=== PATIENT | male | born 1960 | race Caucasian/White ===

== ENCOUNTER 2016-06-13 15:00 | Inpatient (IN) | payer OTHER ==
[2016-06-13] VITALS (11 sets, daily range): BP systolic 89–109; BP diastolic 57–71; PULSE 75–84; TEMP 36.9–37.3; O2SAT 91–95; Ht 180.3 cm; Wt 85.8 kg
[~2016-06-13] VITALS: Ht 180.3 cm; Wt 85.8 kg
[~2016-06-13 15:00] MED LIST: AMT50 PO; ATEN-175 PO; FELO5TAB PO; GABA-113 PO; GLC/500 PO; HYDC25 PO; PRED20TA PO; PRLSR20 PO; RMR15 PO; SIMV20TA2 PO; TAPE1TAB10 PO; TAPE50TA5 PO; [UNRECOGNIZED DRUG - CODE] PO
[2016-06-13] MEDS ORDERED: SODIUM CHLORIDE 0.9% 1000ML 2,000 ML IV STA (15:26)
--- NOTE | 2016-06-13 15:34 | EMERGENCY ROOM VISIT NOTE ---
History Report prepared by Deanna: Harjeet Alvarez Under the Supervision of: Dr. Angel Walter M.D. First contact with patient: 15:21 Chief Complaint: REFERRED BY DOCTOR Stated Complaint: PHANTOM PAIN,REDNESS,CONFUSION,LOW OXYGEN History of Present Illness The patient is a 55 year old male who presents to the Emergency Room with complaints of constant hypoxia starting prior to arrival. The patient states that he was at his doctor's office this morning and his blood pressure and oxygen saturation was very low. The patient's states that he has been having a fever, coughing, and he has been confused for the past couple of days. Additionally the patient has been having phantom pain for four days. The patient 's states that he has not had any labs or x-rays yet. The patient denies any heart history, however he states that he has a Family history of heart issues. The patient states that he is currently a daily smoker. Source of History: patient, spouse/significant other Onset: prior to arrival Position: other (global) Quality: other (hypoxia) Timing: constant Associated Symptoms: + cough, + fevers Note: Associated symptoms: Phantom pain and confusion Review of Systems See HPI for pertinent positives & negatives. A total of 10 systems reviewed and were otherwise negative. Past Medical & Surgical Medical Problems: (1) Chronic low back pain (2) Chronic steroid use (3) Depression (4) Diabetes mellitus, type 2 (5) Dyslipidemia (6) GERD (gastroesophageal reflux disease) (7) Hypertension (8) Phantom limb syndrome with pain (9) Polymyalgia rheumatica (10) Tobacco use Surgical Problems: (1) Amputation of right lower extremity (2) Status post total knee replacement Social History Smoking Status: Never Smoker Marital Status: Housing Status: lives with family Occupation Status: disabled Current/Historical Medications Scheduled Amitriptyline Hcl (Elavil), 100 MG PO HS Atenolol (Tenormin), 100 MG PO BID Atorvastatin (Lipitor), 40 MG PO DAILY Citalopram (Citalopram Hydrobromide), 20 MG PO DAILY Felodipine (Plendil), 5 MG PO DAILY Gabapentin (Neurontin), 900 MG PO BID Glyburide (Diabeta), 2.5 MG PO DAILY Hydrochlorothiazide (Hctz), 25 MG PO DAILY Hydroxychloroquine Sulfate (Plaquenil), 400 MG PO HS Metformin Hcl (Glucophage), 500 MG PO BID Mirtazapine Soltab (Remeron Soltab), 15 MG PO HS Omeprazole (Prilosec), 20 MG PO DAILY Prednisone (Prednisone), 10 MG PO DAILY Tapentadol Hcl (Nucynta), 50 MG PO QID PRN Tapentadol Hcl (Nucynta Er), 1 TAB PO BID Valsartan (Diovan), 320 MG PO DAILY Allergies Coded Allergies: Ciprofloxacin (Verified Allergy, Unknown, ITCH, 06/13/16) Clindamycin (Verified Allergy, Unknown, N/V, 06/13/16) Sulfa Drugs (Verified Allergy, Unknown, ITCH, 06/13/16) Venlafaxine (Verified Allergy, Unknown, N/V, 06/13/16) Physical Exam Vital Signs Date Time Temp Pulse Resp B/P Pulse Ox O2 Delivery O2 Flow Rate FiO2 06/13/16 17:00 103/57 06/13/16 16:55 73 20 95/62 100 Nasal Cannula 2.0 06/13/16 15:13 37.5 82 20 88/55 89 Room Air Physical Exam GENERAL: Patient is chronically unwell appearing. Smells heavily of tobacco smoke. HEENT: No acute trauma, normocephalic atraumatic, mucous membranes moist, no nasal congestion, no scleral icterus. NECK: No stridor, no adenopathy, no meningismus, trachea is midline. LUNGS: Junky cough with crackles at the bases of both lungs HEART: Regular rate and rhythm. No murmurs, rubs, gallops appreciated. ABDOMEN: Soft, nontender, bowel sounds positive, no masses appreciated, no peritonitis. BACK: No midline tenderness, no CVA tenderness EXTREMITIES: Amputated right leg with prosthesis in place. Normal motion all extremities, no cyanosis, no edema. NEUROLOGIC: Alert and oriented, no acute motor or sensory deficits, no focal weakness, cranial nerves grossly intact. SKIN: No rash, no jaundice, no diaphoresis. Medical Decision & Procedures ER Provider Diagnostic Interpretation: X ray results are stated below per my interpretation and the radiologist's interpretation. CHEST ONE VIEW PORTABLE CLINICAL HISTORY: Fever COMPARISON STUDY: No previous studies for comparison. FINDINGS: There is mild elevation right hemidiaphragm. The heart is normal in size. It is no failure. There are no focal pulmonary consolidation. There are minor left basilar atelectatic changes.[ IMPRESSION: No active disease in the chest. Electronically signed by: Roe Rivero M.D. 06/13/2016 3:54 PM Dictated Date/Time: 06/13/2016 3:53 PM Laboratory Results 06/13/16 15:35 Red Blood Count 4.07, Mean Corpuscular Volume 86.5, Mean Corpuscular Hemoglobin 30.7, Mean Corpuscular Hemoglobin Concent 35.5, Mean Platelet Volume 8.0, Neutrophils (%) (Auto) 86.0, Lymphocytes (%) (Auto) 6.7, Monocytes (%) (Auto) 6.9, Eosinophils (%) (Auto) 0.0, Basophils (%) (Auto) 0.1, Neutrophils # (Auto) 10.26, Lymphocytes # (Auto) 0.80, Monocytes # (Auto) 0.82, Eosinophils # (Auto) 0.00, Basophils # (Auto) 0.01 Test 06/13/16 15:35 06/13/16 15:36 White Blood Count 11.92 K/uL (4.8-10.8) Red Blood Count 4.07 M/uL (4.7-6.1) Hemoglobin 12.5 g/dL (14.0-18.0) Hematocrit 35.2 % (42-52) Mean Corpuscular Volume 86.5 fL (80-100) Mean Corpuscular Hemoglobin 30.7 pg (25-34) Mean Corpuscular Hemoglobin Concent 35.5 g/dl (32-36) Platelet Count 186 K/uL (130-400) Mean Platelet Volume 8.0 fL (7.4-10.4) Neutrophils (%) (Auto) 86.0 % Lymphocytes (%) (Auto) 6.7 % Monocytes (%) (Auto) 6.9 % Eosinophils (%) (Auto) 0.0 % Basophils (%) (Auto) 0.1 % Neutrophils # (Auto) 10.26 K/uL (1.4-6.5) Lymphocytes # (Auto) 0.80 K/uL (1.2-3.4) Monocytes # (Auto) 0.82 K/uL (0.11-0.59) Eosinophils # (Auto) 0.00 K/uL (0-0.5) Basophils # (Auto) 0.01 K/uL (0-0.2) RDW Standard Deviation 39.8 fL (36.4-46.3) RDW Coefficient of Variation 12.4 % (11.5-14.5) Immature Granulocyte % (Auto) 0.3 % Immature Granulocyte # (Auto) 0.03 K/uL (0.00-0.02) Prothrombin Time 12.0 SECONDS (9.0-12.0) Prothromb Time International Ratio 1.1 (0.9-1.1) Est Creatinine Clear Calc Drug Dose 51.5 ml/min Total Bilirubin 0.3 mg/dl (0.2-1) Direct Bilirubin < 0.1 mg/dl (0-0.2) Aspartate Amino Transf (AST/SGOT) 17 U/L (15-37) Alanine Aminotransferase (ALT/SGPT) 26 U/L (12-78) Alkaline Phosphatase 46 U/L (45-117) Total Creatine Kinase 169 U/L (39-308) Creatine Kinase MB 1.5 ng/ml (0.5-3.6) Creatine Kinase MB Ratio 0.9 (0-3.0) Troponin I < 0.015 ng/ml (0-0.045) Total Protein 6.5 gm/dl (6.4-8.2) Albumin 3.2 gm/dl (3.4-5.0) Bedside Lactic Acid Venous 2.01 mmol/L (0.90-1.70) Laboratory results as reviewed by me. Medications Administered Medications (Trade) Dose Ordered Sig/Yaz Route Start Time Stop Time Status Last Admin Dose Admin Sodium Chloride (Nss 1000ml) 2,000 ml @ 999 mls/hr Q2H1M STAT IV 06/13/16 15:26 06/13/16 17:26 DC 06/13/16 15:35 999 MLS/HR Piperacillin Sod/ Tazobactam Sod 4.5 gm 4.5 gm NOW STAT IV 06/13/16 16:01 06/13/16 16:03 DC 06/13/16 17:10 4.5 GM Vancomycin HCl/ Sodium Chloride (Vancomycin Inj/ Nss 500ml) 546 ml @ 200 mls/hr NOW ONCE IV 06/13/16 16:45 06/13/16 19:28 DC 06/13/16 17:32 200 MLS/HR ECG Indication: other (hypoxic) Rate (beats per minute): 72 Rhythm: normal sinus Findings: no acute ischemic change, no ectopy ED Course 1521: The patient was evaluated in room C8. A complete history and physical exam was performed. 1526: Sodium Chloride 2000 ml @ 999 mls/hr IV 1601: Zosyn 4.5gm IV 1603 I reevaluated the patient, and he was resting. 1612: I discussed the patient's case with Dr. Tanner. He is going to evaluate the patient for further treatment. 1645: Vancomycin HCl 2300 mg/ Sodium Chloride 546 ml @ 200mls/hr 1701: I reevaluated the patient, and he was feeling better. His blood pressure was 95/60 and he is mentating well. Dr. Tanner is at bedside and will continue managing the patient's sepsis Medical Decision Differential: Infectious, Reactive Airway Disease, Pneumonia, Pneumothorax, COPD , CHF, ACS, Pulmonary Embolism, MSK, GI, Dissection, amongst other etiologies entertained. 55 yr old male sent over from clinic for hypoxia and fever. Notes no chest pain and maybe mild cough last few days. Trop/EKG look OK. He has evidence of sepsis with mildly elevated lactic acid as well. Given 3 L NSS bolus with improvement in BP. Empiric ABX started though no clear source, but would assume lung given hypoxia. He does not exam like PE/dissection not is history consistent with these, and with acute rental insufficiency I do not feel that dye load would be appropriate at this time. Hospitalist involved early in patient care given concern for sepsis and will bring in for further treatment/ monitoring. Consults Time Called: 1609 Consulting Physician: Dr. Tanner Returned Call: 1612 I discussed the patient's case with Dr. Tanner. He is going to evaluate the patient for further treatment. Impression Primary Impression: Sepsis Additional Impressions: Hypoxia Hypotension Critical Care I have personally spent greater than 30 minutes of critical care time in the direct management of this patient. This was a life/limb threatening event. This includes time spent evaluating patient, direct bedside care, chart review, placing orders, interpretation of diagnostic studies, discussion with consultants, patient, and family members, as well as other required patient management activities. This 30 minutes is in excess of all separately billable procedures. Scribe Attestation The scribe's documentation has been prepared under my direction and personally reviewed by me in its entirety. I confirm that the note above accurately reflects all work, treatment, procedures, and medical decision making performed by me. Departure Information Dispostion Being Evaluated By Hospitalist Referrals Spencer Cherry M.D.([facility]) (PCP) Problem Qualifiers Primary Impression: Sepsis Sepsis type: sepsis due to unspecified organism Qualified Codes: A41.9 - Sepsis, unspecified organism Additional Impressions: Hypotension Hypotension type: unspecified hypotension type Qualified Codes: I95.9 - Hypotension, unspecified
[2016-06-13 15:49] LABS: HEMATOCRIT 35.2 % (42-52); MEAN CELL VOLUME 86.5 fL (80-100); MEAN CORPUSCULAR HEMOGLOBIN 30.7 pg (25-34); MEAN CORPUSCULAR HGB CONC 35.5 g/dl (32-36); PLATELET COUNT 186 K/uL (130-400); RED BLOOD COUNT 4.07 M/uL (4.7-6.1); WHITE BLOOD COUNT 11.92 K/uL (4.8-10.8)
--- NOTE | 2016-06-13 15:55 | DIAGNOSTIC IMAGING REPORT ---
CHEST ONE VIEW PORTABLE CLINICAL HISTORY: Fever COMPARISON STUDY: No previous studies for comparison. FINDINGS: There is mild elevation right hemidiaphragm. The heart is normal in size. It is no failure. There are no focal pulmonary consolidation. There are minor left basilar atelectatic changes.[ IMPRESSION: No active disease in the chest. Electronically signed by: Roe Rivero M.D. 06/13/2016 3:54 PM Dictated Date/Time: 06/13/2016 3:53 PM
[2016-06-13 15:57] LABS: INR 1.1 (0.9-1.1)
[2016-06-13] MEDS ORDERED: PIPERACILLIN/TAZOBACTAM 4.5 GM/100ML D5W IV STA (16:01)
[2016-06-13 16:12] LABS: ALT/SGPT 26 U/L (12-78); AST/SGOT 17 U/L (15-37); BASO % 0.1 %; BASO ABS # 0.01 K/uL (0-0.2); BLOOD UREA NITROGEN 36 mg/dl (7-18); BUN/CREATININE RATIO 19.2 (10-20); CALCIUM 7.8 mg/dl (8.5-10.1); CARBON DIOXIDE 25 mmol/L (21-32); CHLORIDE 93 mmol/L (98-107); COMPLETE YES; GLUCOSE 77 mg/dl (70-99); IG% 0.3 %; LYMPH % 6.7 %; MAGNESIUM 1.8 mg/dl (1.8-2.4); MONO % 6.9 %; POTASSIUM 3.7 mmol/L (3.5-5.1); SODIUM 129 mmol/L (136-145)
[2016-06-13 16:17] LABS: ALKALINE PHOSPHATASE 46 U/L (45-117); CKMB/CK RATIO 0.9 (0-3.0)
[2016-06-13] MEDS ORDERED: MIRT15TA2 PO (16:18)
[2016-06-13] MEDS ORDERED: HYDR25TA4 PO (16:18)
[2016-06-13] MEDS ORDERED: VALS320T PO (16:18)
[2016-06-13] MEDS ORDERED: ATOR-24 PO (16:18)
[2016-06-13] MEDS ORDERED: VANCOMYCIN INJ 2,300 MG in SODIUM CHLORIDE 0.9% 500ML 500 ML IV ONE (16:45)
[2016-06-13] MEDS ORDERED: ONDANSETRON INJ 2 MG/ML 2 ML VIAL IV PRN (17:15)
[2016-06-13] MEDS ORDERED: ACETAMINOPHEN 325 MG TAB PO PRN (17:15)
[2016-06-13] MEDS ORDERED: SODIUM CHLORIDE 0.9% 1000ML 1,000 ML IV SCH (17:15)
[2016-06-13] MEDS ORDERED: CLX20 PO (17:36)
[2016-06-13] MEDS ORDERED: PRED10TA PO (17:37)
[2016-06-13] MEDS ORDERED: GLYB2.5T7 PO (17:37)
[2016-06-13] MEDS ORDERED: HYDR200T5 PO (17:37)
[2016-06-13 17:39] LABS: MANUAL MICROSCOPIC REQUIRED? NO; REVIEW REQ? YES; URINE APPEARANCE CLEAR (CLEAR); URINE BILIRUBIN NEG (NEG); URINE COLOR DK YELLOW; URINE NITRITE NEG (NEG); URINE SPECIFIC GRAVITY 1.013 (1.000-1.030); UROBILINOGEN NEG (NEG)
[2016-06-13] MEDS ORDERED: VANCOMYCIN INJ 0 MG in SODIUM CHLORIDE 0.9% 500ML 500 ML IV SCH (17:45)
[2016-06-13] MEDS ORDERED: TAPENTADOL HCL 50 MG TAB PO PRN (17:45)
[2016-06-13 17:52] LABS: URINE PATH CASTS 0-3 GRANULAR CASTS /lpf (0)
--- NOTE | 2016-06-13 17:54 | History and Physical ---
History & Physical Date & Time of Service: Jun 13, 2016 at 17:54 . Chief Complaint: cough, weakness, confusion . Primary Care Physician: Spencer Cherry M.D.([facility]) . History of Present Illness Source: patient, family, clinic records, hospital records 55-year-old male followed by Dr. Cherry. History of hypertension, diabetes mellitus type 2, PMR on steroids, and other problems noted below. 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 Since then, he has experienced phantom limb discomfort. 3 nights prior to admission he developed a cough that was nonproductive. No apparent fever. He felt tired and noticed increasing discomfort from his phantom limb symptoms. 2 days prior to admission he had persistent phantom limb discomfort, persistent cough, weakness, and confusion. Yesterday he was very tired and slept much of the day. Seen in clinic today because of his persistent cough, confusion, and phantom limb discomfort. Found to be acutely ill and referred to the ED for further management. In the ED, he is noted to be hypotensive, hypoxic, confused. He had a low-grade temperature. Sepsis protocol was initiated. As noted, patient has had a cough for the past few days that remains nonproductive. No sinus symptoms or pharyngitis. No toothaches. No nausea, vomiting, diarrhea, abdominal pain. No dysuria, hematuria, flank pain. No problems with his right lower extremity prosthesis (e.g., no drainage at amputation site, etc). . . Past Medical/Surgical History Chronic and Resolved Medical Problems: (1) Chronic low back pain Status: Chronic (2) Chronic steroid use Permanent Comment: PMR Status: Chronic (3) Depression Status: Chronic (4) Diabetes mellitus, type 2 Status: Chronic (5) Dyslipidemia Status: Chronic (6) GERD (gastroesophageal reflux disease) Status: Chronic (7) Hypertension Status: Chronic (8) Phantom limb syndrome with pain Status: Chronic (9) Polymyalgia rheumatica Status: Chronic (10) Tobacco use Status: Chronic Surgical Problems: (1) Amputation of right lower extremity Permanent Comment: logging accident; amputation at hip / pelvis Status: Chronic (2) Status post total knee replacement Status: Chronic . Family History FATHER Heart disease Prostate cancer SISTER Diabetes mellitus Social History Smoking Status: Current Every Day Smoker Alcohol Use: none recently Marital Status: Occupational Status: disabled Immunizations History of Influenza Vaccine: Yes History of Pneumococcal: Yes Multi-Drug Resistant Organisms History of MDRO: No Allergies Coded Allergies: Ciprofloxacin (Verified Allergy, Unknown, ITCH, 06/13/16) Clindamycin (Verified Allergy, Unknown, N/V, 06/13/16) Sulfa Drugs (Verified Allergy, Unknown, ITCH, 06/13/16) Venlafaxine (Verified Allergy, Unknown, N/V, 06/13/16) Home Medications Scheduled Amitriptyline Hcl (Elavil), 100 MG PO HS Atenolol (Tenormin), 100 MG PO BID Atorvastatin (Lipitor), 40 MG PO DAILY Citalopram (Citalopram Hydrobromide), 20 MG PO DAILY Felodipine (Plendil), 5 MG PO DAILY Gabapentin (Neurontin), 900 MG PO BID Glyburide (Diabeta), 2.5 MG PO DAILY Hydrochlorothiazide (Hctz), 25 MG PO DAILY Hydroxychloroquine Sulfate (Plaquenil), 400 MG PO HS Metformin Hcl (Glucophage), 500 MG PO BID Mirtazapine Soltab (Remeron Soltab), 15 MG PO HS Omeprazole (Prilosec), 20 MG PO DAILY Prednisone (Prednisone), 10 MG PO DAILY Tapentadol Hcl (Nucynta), 50 MG PO QID PRN Tapentadol Hcl (Nucynta Er), 1 TAB PO BID Valsartan (Diovan), 320 MG PO DAILY Review of Systems Constitutional: + fever, No chills, No weight loss Eyes: No diplopia, No worsening of vision ENT: No nasal symptoms, No sore throat Respiratory: + problem reported (as noted above in HPI) Cardiovascular: No chest pain, No edema Abdomen: No GI bleeding, No diarrhea, No nausea, No pain, No vomiting Musculoskeletal: + muscle pain (PMR symptoms controlled on prednisone), + problem reported (phantom pain RLE; chronic lumbar pain, unchanged) Genitourinary - Male: No dysuria, No hematuria Neurologic: + problem reported (no headaches) Psychiatric: + depression symptoms Endocrine: + fatigue, No excessive thirst, No excessive urination Hematologic / Lymphatic: No abnormal bleeding/bruising, No swollen lymph nodes Integumentary: No new/changing skin lesions, No rash Physical Exam Vital Signs Date Time Temp Pulse Resp B/P Pulse Ox O2 Delivery O2 Flow Rate FiO2 06/13/16 17:43 76 06/13/16 17:36 96 Nasal Cannula 2.0 06/13/16 17:30 79 17 125/65 96 06/13/16 17:00 103/57 06/13/16 16:55 73 20 95/62 100 Nasal Cannula 2.0 06/13/16 15:13 37.5 82 20 88/55 89 Room Air General Appearance: WD/WN, + moderate distress Head: normocephalic, atraumatic Eyes: normal inspection, PERRL, EOMI, sclerae normal, + pertinent finding ( conjunctivae pink) ENT: hearing grossly normal, pharynx normal, + pertinent finding (dentition poor) Neck: supple, no adenopathy, thyroid normal, no JVD, trachea midline Respiratory/Chest: + rhonchi (scattered), + wheezing (diffuse, moderate) Cardiovascular: regular rate, rhythm, no edema, no gallop, no JVD, no murmur, + pertinent finding (diminished pedal pulses L foot; capillary refill 1-2 sec) Abdomen/GI: normal bowel sounds, non tender, soft, no organomegaly, no pulsatile mass Extremities/Musculoskelatal: no calf tenderness, no pedal edema, + pertinent finding (amputation RLE at level of hip / pelvis) 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 (PERRL, EOMI, no facial palsy), no motor/sensory deficits (grossly intact), + disoriented (mild confusion) Skin: normal color, warm/dry, no rash, + pertinent finding (1 cm superfical ulcer right pelvis overlying amputation scar, no erythema or drainage) Lymphatic: no adenopathy Diagnostics Laboratory Results Results Past 24 Hours Test 06/13/16 15:35 06/13/16 15:36 06/13/16 17:20 Range/Units White Blood Count 11.92 4.8-10.8 K/uL Red Blood Count 4.07 4.7-6.1 M/uL Hemoglobin 12.5 14.0-18.0 g/dL Hematocrit 35.2 42-52 % Mean Corpuscular Volume 86.5 80-100 fL Mean Corpuscular Hemoglobin 30.7 25-34 pg Mean Corpuscular Hemoglobin Concent 35.5 32-36 g/dl Platelet Count 186 130-400 K/uL Mean Platelet Volume 8.0 7.4-10.4 fL Neutrophils (%) (Auto) 86.0 % Lymphocytes (%) (Auto) 6.7 % Monocytes (%) (Auto) 6.9 % Eosinophils (%) (Auto) 0.0 % Basophils (%) (Auto) 0.1 % Neutrophils # (Auto) 10.26 1.4-6.5 K/uL Lymphocytes # (Auto) 0.80 1.2-3.4 K/uL Monocytes # (Auto) 0.82 0.11-0.59 K/uL Eosinophils # (Auto) 0.00 0-0.5 K/uL Basophils # (Auto) 0.01 0-0.2 K/uL RDW Standard Deviation 39.8 36.4-46.3 fL RDW Coefficient of Variation 12.4 11.5-14.5 % Immature Granulocyte % (Auto) 0.3 % Immature Granulocyte # (Auto) 0.03 0.00-0.02 K/uL Prothrombin Time 12.0 9.0-12.0 SECONDS Prothromb Time International Ratio 1.1 0.9-1.1 Sodium Level 129 136-145 mmol/L Potassium Level 3.7 3.5-5.1 mmol/L Chloride Level 93 98-107 mmol/L Carbon Dioxide Level 25 21-32 mmol/L Anion Gap 11.0 3-11 mmol/L Blood Urea Nitrogen 36 7-18 mg/dl Creatinine 1.90 0.60-1.40 mg/dl Est Creatinine Clear Calc Drug Dose 51.5 ml/min Estimated GFR () 45.3 Estimated GFR (Non- 39.1 BUN/Creatinine Ratio 19.2 10-20 Random Glucose 77 70-99 mg/dl Calcium Level 7.8 8.5-10.1 mg/dl Magnesium Level 1.8 1.8-2.4 mg/dl Total Bilirubin 0.3 0.2-1 mg/dl Direct Bilirubin < 0.1 0-0.2 mg/dl Aspartate Amino Transf (AST/SGOT) 17 15-37 U/L Alanine Aminotransferase (ALT/SGPT) 26 12-78 U/L Alkaline Phosphatase 46 45-117 U/L Total Creatine Kinase 169 39-308 U/L Creatine Kinase MB 1.5 0.5-3.6 ng/ml Creatine Kinase MB Ratio 0.9 0-3.0 Troponin I < 0.015 0-0.045 ng/ml Total Protein 6.5 6.4-8.2 gm/dl Albumin 3.2 3.4-5.0 gm/dl Bedside Lactic Acid Venous 2.01 0.90-1.70 mmol/L Urine Color DK YELLOW Urine Appearance CLEAR CLEAR Urine pH 5.0 4.5-7.5 Urine Specific [place] 1.013 1.000-1.030 Urine Protein NEG NEG Urine Glucose (UA) NEG NEG Urine Ketones NEG NEG Urine Occult Blood NEG NEG Urine Nitrite NEG NEG Urine Bilirubin NEG NEG Urine Urobilinogen NEG NEG Urine Leukocyte Esterase NEG NEG Urine WBC (Auto) 1-5 0-5 /hpf Urine RBC (Auto) 0-4 0-4 /hpf Urine Hyaline Casts (Auto) 10-30 0-5 /lpf Urine Epithelial Cells (Auto) 10-20 0-5 /lpf Urine Bacteria (Auto) NEG NEG Urine Pathogenic Casts 0-3 GRANULAR CASTS 0 /lpf Microbiology Results 06/13/16 Blood Culture, Received Pending 06/13/16 Blood Culture, Received Pending 06/13/16 Urine Culture, Received Pending Impression Assessment and Plan SEVERE SEPSIS Presented to ED with low-grade fever, cough, hypotension, altered mental status , leukocytosis, hyperlactemia. Blood pressure as low as 88/55. Serum lactate 2.01. Meets criteria for severe sepsis. Source uncertain, probable lower respiratory tract although chest x-ray does not show any infiltrates at this time. Blood cultures obtained in ED; urine culture ordered as well. Received fluid resuscitation with normal saline; goal = about 2700 ml per guidelines. Stress dose IV hydrocortisone will be ordered due to chronic steroid therapy. Will start pressor support if patient has persistent hypotension after initial fluid resuscitation. Received broad-spectrum IV antibiotic coverage with piperacillin/tazobactam and vancomycin which will be continued. Check follow-up labs, including lactate, pro-calcitonin, C-reactive protein. Initial empiric antibiotic therapy will be continued for 48 hours per protocol; antibiotic management will need to be reevaluated at that time. ALTERED MENTAL STATUS Probable encephalopathy secondary to sepsis. Follow. HYPOXIA Oxygen saturation 89% on room air. No history of chronic lung disease, although patient is a smoker. Supplemental oxygen as needed. Nebs for bronchospasm. Weaned O2 as able. ACUTE KIDNEY INJURY Serum creatinine 1.9 compared to baseline of 0.9. Acute kidney injury most likely secondary to sepsis. Management of sepsis as outlined above. Avoid potential nephrotoxins when able. Follow. HYPONATREMIA Serum sodium 129. Hyponatremia may be secondary to hydrochlorothiazide, SIADH, other factors. Hold HCTZ. Follow. HYPERTENSION History of hypertension managed with hydrochlorothiazide, atenolol, felodipine, losartan. Hypotensive in ED, apparently due to sepsis. Hold hydrochlorothiazide, felodipine, losartan. Continue atenolol as hemodynamics allow, but initially at a reduced dose with hold parameters. Follow and titrate therapy. DM TYPE 2 Usually well-controlled. Check hemoglobin A1c. Hold metformin and glyburide during acute illness. Lantus/NovoLog per protocol with initial glucose goal range of 140-180. PMR PMR on chronic prednisone therapy. IV steroids while acutely ill, then taper to usual maintenance dose. Also takes hydroxychloroquine- will hold in light of sepsis. CHRONIC PAIN Continue usual regimen as tolerated. VTE PROPHYLAXIS Moderately high risk for VTE. SQ enoxaparin. Ambulate as able. RESUSCITATION STATUS Full resuscitation. DISPOSITION Hemodynamics improving with fluid resuscitation. Admit to Telemetry Unit. Discharge disposition to be determined. Family Medicine follow-up with Dr. Cherry. . VTE Prophylaxis VTE Risk Assessment Done? Y/N: Yes Risk Level: Moderate Given or contraindicated: Enoxaparin (Lovenox)SQ
[2016-06-13] MEDS ORDERED: PANTOprazole INJ 40 MG in SYRINGE 0 ML IV STA (19:38)
[2016-06-13 19:49] LABS: PARTIAL THROMBOPLASTIN RATIO 1.3
--- NOTE | 2016-06-13 19:58 | Progress Note ---
Progress Note Post Crystalloid Evaluation Date: Jun 13, 2016 Time: 19:30 Subjective Better. BP's improved. More alert. Persistent cough. No SOB. Good urine output via Perez cath. . Physical Exam Vital Signs: Vital Signs Date Time Temp Pulse Resp B/P Pulse Ox O2 Delivery O2 Flow Rate FiO2 06/13/16 19:05 37.3 80 18 105/64 Nasal Cannula 2.0 06/13/16 19:05 95 Lungs: + rhonchi, + wheezing Heart: regular rate, rhythm, no edema, no gallop, no JVD, no murmur Peripheral Pulse: Weak (left pedal pulses dimnished) Capillary Refill: Normal (less than 2 seconds) Skin: Flushed (mild flushing back / neck) Assessment & Plan Presence of: Severe Sepsis Severe sepsis, suspected pulmonary source. Hemodynamics improved with fluid resuscitation. Repeat lactate and other labs pending. Continue IV vancomycin and piperacillin / tazo. .
[2016-06-13] MEDS ORDERED: PIPERACILL/TAZOBAC CONSULT ACTIVE PRN (20:00)
[2016-06-13] MEDS ORDERED: VANCOMYCIN CONSULT ACTIVE PRN (20:00)
[2016-06-13 20:23] LABS: BUN/CREATININE RATIO 20.3 (10-20); C-REACTIVE PROTEIN 14.6 mg/dl (0-0.29); CALCIUM 7.2 mg/dl (8.5-10.1); CREATININE 1.5 mg/dl (0.60-1.40); POTASSIUM 3.6 mmol/L (3.5-5.1)
[2016-06-13 20:35] LABS: MAGNESIUM 1.8 mg/dl (1.8-2.4)
[2016-06-13] MEDS: INSULIN ASPART 100 UNITS/ML 3 ML PEN SC SCH (21:05)
[2016-06-13] MEDS: ENOXAPARIN 40 MG/0.4 ML SYR SC SCH (21:05)
[2016-06-13] MEDS: GABAPENTIN 600 MG TAB PO SCH (21:08)
[2016-06-13] MEDS: AMITRIPTYLINE HCL 50 MG TAB PO SCH (21:08)
[2016-06-13] MEDS: MIRTAZAPINE TAB 15 MG TAB PO SCH (21:09)
[2016-06-13] MEDS: INSULIN GLARGINE SOLOSTAR 100 UNITS/ML 3 ML PEN SC SCH (21:14)
[2016-06-13] MEDS: TAPENTADOL ER 50 MG TABCR PO SCH (21:14)
[2016-06-13 21:26] LABS: INFLUENZA B PCR Neg for Influ B (NEG)
[2016-06-13 21:28] LABS: INFLUENZA A PCR POS for Influ A (NEG)
[2016-06-13] MEDS ORDERED: OSELTAMIVIR PHOSPHATE 75 MG CAP PO ONE (21:33)
[2016-06-13] MEDS: PIPERACILL/TAZOBAC IV 3.375 GM in DEXTROSE 5% 100ML 100 ML IV SCH (23:53)
[2016-06-13] MEDS: HYDROCORTISONE IV 50 MG in SYRINGE 0 ML IV SCH (23:53)
[2016-06-14] VITALS (22 sets, daily range): BP systolic 91–130; BP diastolic 60–76; PULSE 67–84; TEMP 36.4–36.7; O2SAT 91–97
[2016-06-14] MEDS: VANCOMYCIN INJ 1,000 MG in SODIUM CHLORIDE 0.9% 250ML 250 ML IV SCH ×2 (05:38→18:31)
[2016-06-14 05:40] LABS: HEMATOCRIT 35.7 % (42-52); MEAN CELL VOLUME 89.3 fL (80-100); MEAN CORPUSCULAR HEMOGLOBIN 31.8 pg (25-34); MEAN CORPUSCULAR HGB CONC 35.6 g/dl (32-36); MEAN PLATELET VOLUME 8.1 fL (7.4-10.4); PLATELET COUNT 175 K/uL (130-400); WHITE BLOOD COUNT 9.75 K/uL (4.8-10.8)
[2016-06-14 06:19] LABS: CALCIUM 7.8 mg/dl (8.5-10.1); CREATININE 0.91 mg/dl (0.60-1.40); MAGNESIUM 1.8 mg/dl (1.8-2.4); POTASSIUM 3.5 mmol/L (3.5-5.1)
[2016-06-14] MEDS: INSULIN ASPART 100 UNITS/ML 3 ML PEN SC SCH ×4 (07:00→20:02)
--- NOTE | 2016-06-14 07:53 | DIAGNOSTIC IMAGING REPORT ---
CHEST ONE VIEW PORTABLE CLINICAL HISTORY: sepsis COMPARISON STUDY: No previous studies for comparison. FINDINGS: There is mild elevation of right hemidiaphragm. The heart is normal in size. No evidence for pulmonary edema. There are no focal pulmonary consolidation. There are minor left basilar atelectatic changes.[ IMPRESSION: No significant change compared to the prior study. Stable elevation of the right hemidiaphragm. Electronically signed by: Rolan Church M.D. 06/14/2016 7:52 AM Dictated Date/Time: 06/14/2016 7:51 AM
[2016-06-14] MEDS: CITALOPRAM 20 MG TAB PO SCH (08:09)
[2016-06-14] MEDS: HYDROCORTISONE IV 50 MG in SYRINGE 0 ML IV SCH ×2 (08:09→17:38)
[2016-06-14] MEDS: OSELTAMIVIR PHOSPHATE 75 MG CAP PO SCH ×2 (08:10→20:00)
[2016-06-14] MEDS: VALSARTAN 80 MG TAB PO SCH (08:10)
[2016-06-14] MEDS: PANTOprazole SOD 40 MG TAB PO SCH (08:10)
[2016-06-14] MEDS: GABAPENTIN 600 MG TAB PO SCH ×2 (08:10→20:00)
[2016-06-14] MEDS: INSULIN GLARGINE SOLOSTAR 100 UNITS/ML 3 ML PEN SC SCH ×2 (08:28→20:03)
[2016-06-14] MEDS: PIPERACILL/TAZOBAC IV 3.375 GM in DEXTROSE 5% 100ML 100 ML IV SCH ×2 (08:28→17:37)
[2016-06-14] MEDS: TAPENTADOL ER 50 MG TABCR PO SCH ×2 (08:36→20:06)
--- NOTE | 2016-06-14 17:28 | Pharmacy Progress Note ---
Pharmacy Antibiotic Consult Date of Service: Jun 14, 2016. Pharmacy Dosing Scope Pharmacy is consulted to initiate vancomycin and Zosyn IV dosing therapy, order appropriate labs and adjust drug dose/frequency. Subjective The patient is a 55 year old male admitted on Jun 13, 2016 at 17:15 with severe sepsis, suspected pulmonary source. Objective Height (Feet): 5 Height (Inches): 11.00 Weight (Kilograms): 85.800 Lab Results (24hrs): Laboratory Tests Test 06/13/16 19:30 06/14/16 05:21 BUN/Creatinine Ratio 20.3 22.0 Blood Urea Nitrogen 30 mg/dl 20 mg/dl Creatinine 1.50 mg/dl 0.91 mg/dl White Blood Count 9.75 K/uL Micro Results: Urine and Blood cx are pending Assessment & Plan Vancomycin for sepsis, pulmonary source. * Loading dose: 2300 mg IV X 1 dose (~25mg/kg) then: * 1000 mg IV every 12 hours. * Goal peak level estimate: between 35 - 40 mcg/mL. * Goal trough level estimate: between 15 - 20 mcg/mL. * Peak and trough or random level has been ordered for: 04/14 prior to 1800 dose. Zosyn 4.5gm IV in ER, the 3.375gm IV q8h extended infusion for CrCl > 20ml/min. Pharmacy will continue to follow and will adjust dose/frequency as necessary. Thank you
--- NOTE | 2016-06-14 18:52 | Progress Note ---
Internal Med Progress Note Date of Service: Jun 14, 2016. Provider Documentation: SUBJECTIVE: no fever or chills OBJECTIVE: Vital Signs-as noted below Exam: General-no sign of distress Eyes-sclera non icteric ENT-nad Neck-no thyromegaly Lungs-CTA .no wheeze or rales Heart-regular S1/S2 Abdomen-soft, non tender Extremities-no lower ext edema Neuro-no focal deficit Lab data as noted below. ASSESSMENT & PLAN: SEVERE SEPSIS due to Influenza A Presented to ED with low-grade fever, cough, hypotension, altered mental status , leukocytosis, hyperlactemia. Blood pressure as low as 88/55. Serum lactate 2.01. Meets criteria for severe sepsis. Received fluid resuscitation with normal saline BP remains stable Lactic acid level normalized with fluid resuscitation INFLUENZA A started on Tamiflu complete 5 days course Droplet precaution ALTERED MENTAL STATUS resolved , mental status at baseline Probable metabolic encephalopathy secondary to sepsis/dehydration /flu Follow. HYPOXIA due to pneumonia Supplemental oxygen as needed. Nebs for bronchospasm. Weaned O2 as able. ACUTE KIDNEY INJURY due to sepsis /dehydration resolved with IV hydration follow PRP presented Serum creatinine 1.9 compared to baseline of 0.9. cont to Hold HCTZ HYPONATREMIA due to dehydration improved with IV fluid Na 135 now cont to Hold HCTZ. Follow. HYPERTENSION was hypotensive due to sepsis. BP stable now resumed atenolol, felodipine, losartan. Hold hydrochlorothiazide for MARTINEZ DM TYPE 2 hemoglobin A1c. Hold metformin and glyburide during acute illness. Lantus/NovoLog per protocol with initial glucose goal range of 140-180. PMR PMR on chronic prednisone therapy-prednisone 10 mg PO daily IV steroids while acutely ill, then taper to usual maintenance dose. started on Wean down IV steroid as pt is clinically improving hold hydroxychloroquine- in light of sepsis. VTE PROPHYLAXIS SQ enoxaparin. Ambulate as able. RESUSCITATION STATUS Full resuscitation. DISPOSITION Discharge home when medically stable Family Medicine follow-up with Dr. Cherry. Vital Signs: Date Time Temp Pulse Resp B/P Pulse Ox O2 Delivery O2 Flow Rate FiO2 06/15/16 16:22 36.9 73 16 176/102 96 Room Air 06/15/16 16:00 Room Air 06/15/16 08:00 Room Air 06/15/16 07:26 36.7 70 18 131/89 93 1.0 06/15/16 00:01 Nasal Cannula 2.0 Lab Results: Results Past 24 Hours Test 06/15/16 06:30 06/15/16 08:04 06/15/16 11:31 06/15/16 16:17 Range/Units Sodium Level 140 136-145 mmol/L Potassium Level 3.5 3.5-5.1 mmol/L Chloride Level 104 98-107 mmol/L Carbon Dioxide Level 31 21-32 mmol/L Anion Gap 5.0 3-11 mmol/L Blood Urea Nitrogen 8 7-18 mg/dl Creatinine 0.64 0.60-1.40 mg/dl Est Creatinine Clear Calc Drug Dose 140.5 ml/min Estimated GFR () 128.7 Estimated GFR (Non- 111.0 BUN/Creatinine Ratio 12.0 10-20 Random Glucose 110 70-99 mg/dl Calcium Level 8.1 8.5-10.1 mg/dl Magnesium Level 1.6 1.8-2.4 mg/dl Bedside Glucose 145 201 155 70-99 mg/dl Microbiology Results 06/15/16 Blood Culture, Received Pending 06/15/16 Blood Culture, Received Pending
[2016-06-14] MEDS ORDERED: SODIUM CHLORIDE 0.9% 1000ML 1,000 ML IV SCH (19:00)
[2016-06-14] MEDS: MIRTAZAPINE TAB 15 MG TAB PO SCH (20:00)
[2016-06-14] MEDS: AMITRIPTYLINE HCL 50 MG TAB PO SCH (20:00)
[2016-06-14] MEDS: ENOXAPARIN 40 MG/0.4 ML SYR SC SCH (20:01)
[2016-06-14] MEDS ORDERED: DOXYCYCLINE HYCLATE 100 MG CAP PO SCH (21:00)
[2016-06-15] MEDS: PIPERACILL/TAZOBAC IV 3.375 GM in DEXTROSE 5% 100ML 100 ML IV SCH ×2 (00:07→08:00)
[2016-06-15] MEDS: VANCOMYCIN INJ 1,000 MG in SODIUM CHLORIDE 0.9% 250ML 250 ML IV SCH (05:32)
[2016-06-15] MEDS ORDERED: HYDROCORTISONE IV 50 MG in SYRINGE 0 ML IV SCH (06:00)
[2016-06-15 06:56] LABS: ESTIMATED AVERAGE GLUCOSE 143 mg/dl; HA1C FLAG Normal (Normal)
[2016-06-15 07:26] VITALS: BP 131/89; PULSE 70; TEMP 36.7; O2SAT 93
[2016-06-15 07:29] LABS: CALCIUM 8.1 mg/dl (8.5-10.1); CREATININE 0.64 mg/dl (0.60-1.40); MAGNESIUM 1.6 mg/dl (1.8-2.4); POTASSIUM 3.5 mmol/L (3.5-5.1)
[2016-06-15] MEDS: GABAPENTIN 600 MG TAB PO SCH ×2 (08:01→22:12)
[2016-06-15] MEDS: PANTOprazole SOD 40 MG TAB PO SCH (08:01)
[2016-06-15] MEDS: VALSARTAN 80 MG TAB PO SCH (08:01)
[2016-06-15] MEDS: OSELTAMIVIR PHOSPHATE 75 MG CAP PO SCH ×2 (08:01→22:13)
[2016-06-15] MEDS: CITALOPRAM 20 MG TAB PO SCH (08:01)
[2016-06-15] MEDS: INSULIN GLARGINE SOLOSTAR 100 UNITS/ML 3 ML PEN SC SCH ×2 (08:09→22:05)
[2016-06-15] MEDS: INSULIN ASPART 100 UNITS/ML 3 ML PEN SC SCH ×4 (08:09→21:00)
[2016-06-15] MEDS: TAPENTADOL ER 50 MG TABCR PO SCH ×2 (08:13→22:23)
--- NOTE | 2016-06-15 10:17 | Medical Consult ---
Consultation Date of Consultation: Jun 15, 2016. Attending Physician: Faby Weinberg M.D. Reason for Consultation: Sepsis, GPC bacteremia History of Present Illness Patient is a 55 yo male who presented to the ED with complaints of hypoxia. The patient had been feeling slightly weak and fatigued at home, so he was evaluated at him PCP's office and was noted to have hypotension and hypoxia. He also had been experiencing cough, sweats, and chills at home. The patient does have history of right entire lower extremity amputation as well. The patient states that [employer]ITIONAL SERVICES [employer], he had been having some irritation of his amputation site, but this has resolved. He did however fall at home and caused large abrasions of the lumbar spine. On admission, his WBC count was 11.92. ESR was 21. CRP was 14.60. Initial blood cultures are growing GPC in 1/2 cultures. Repeat cultures are pending. Urine culture is showing no growth. Chest X-Rays showed no acute disease. I discussed this patient with Dr. Weinberg as well. It was noted that Influenza A PCR was positive as well. Past Medical/Surgical History Medical Problems: (1) Closed fracture of 5th metacarpal Status: Acute (2) Hypotension Status: Acute (3) Hypoxia Status: Acute (4) Migratory polyarthritis Status: Acute (5) Sepsis Status: Acute (6) Wrist injury Status: Acute Medical Problems: (1) Chronic low back pain (2) Chronic steroid use (3) Depression (4) Diabetes mellitus, type 2 (5) Dyslipidemia (6) GERD (gastroesophageal reflux disease) (7) Hypertension (8) Phantom limb syndrome with pain (9) Polymyalgia rheumatica (10) Tobacco use Surgical Problems: (1) Amputation of right lower extremity (2) Status post total knee replacement Family History Diabetes mellitus SISTER Heart disease FATHER Prostate cancer FATHER Noncontributory Social History Smoking Status: Current Every Day Smoker Alcohol Use: none recently Marital Status: Housing Status: lives with family Occupation Status: disabled Allergies Coded Allergies: Ciprofloxacin (Verified Allergy, Mild, ITCH, 06/14/16) Sulfa Antibiotics (Verified Allergy, Mild, ITCH, 06/14/16) Clindamycin (Verified Adverse Reaction, Mild, N/V, 06/14/16) Venlafaxine (Verified Adverse Reaction, Mild, N/V, 06/14/16) Home Medications Reported Home Medications Medications Dose Route/Sig Max Daily Dose Days Date Category Plaquenil (Hydroxychloroquine Sulfate) 200 Mg Tab 400 Mg PO HS 06/13/16 Reported Prednisone 10 Mg Tab 10 Mg PO DAILY 06/13/16 Reported Diabeta (Glyburide) 2.5 Mg Tab 2.5 Mg PO DAILY 06/13/16 Reported Citalopram Hydrobromide (Citalopram) 20 Mg Tab 20 Mg PO DAILY 06/13/16 Reported Diovan (Valsartan) 320 Mg Tab 320 Mg PO DAILY 06/13/16 Reported Lipitor (Atorvastatin Calcium) 40 Mg Tab 40 Mg PO DAILY 06/13/16 Reported Remeron Soltab (Mirtazapine) 15 Mg Soltab 15 Mg PO HS 06/13/16 Reported Hctz (Hydrochlorothiazide) 25 Mg Tab 25 Mg PO DAILY 06/13/16 Reported Nucynta Er (Tapentadol Hcl) 100 Mg Tab 1 Tab PO BID 30 08/22/15 Reported Neurontin (Gabapentin) 300 Mg Cap 900 Mg PO BID 01/22/14 Reported Glucophage (Metformin Hcl) 500 Mg Tab 500 Mg PO BID 10/23/13 Reported Nucynta (Tapentadol) 50 Mg Tab 50 Mg PO QID PRN 05/06/11 Reported Plendil (Felodipine) 5 Mg Tabcr 5 Mg PO DAILY 03/11/11 Reported Prilosec (Omeprazole) 20 Mg Capcr 20 Mg PO DAILY 03/11/11 Reported Tenormin (Atenolol) 100 Mg Tab 100 Mg PO BID 05/30/08 Reported Elavil (Amitriptyline HCl) 50 Mg Tab 100 Mg PO HS 05/30/08 Reported Current Inpatient Medications Current Inpatient Medications Medications (Trade) Dose Ordered Sig/Yaz Route Start Time Stop Time Status Last Admin Dose Admin Enoxaparin Sodium (Lovenox Inj) 40 mg HS SC 06/13/16 21:00 07/13/16 20:59 06/14/16 20:01 40 MG Acetaminophen (Tylenol Tab) 650 mg Q4H PRN PO 06/13/16 17:15 07/13/16 17:14 Ondansetron HCl (Zofran Inj) 4 mg Q6H PRN IV 06/13/16 17:15 07/13/16 17:14 Amitriptyline HCl (Elavil Tab) 100 mg HS PO 06/13/16 21:00 07/13/16 20:59 06/14/16 20:00 100 MG Citalopram Hydrobromide (celeXA TAB) 20 mg DAILY PO 06/14/16 09:00 07/14/16 08:59 06/15/16 08:01 20 MG Gabapentin (Neurontin Tab) 900 mg BID PO 06/13/16 21:00 07/13/16 20:59 06/15/16 08:01 900 MG Tapentadol (Nucynta Tab) 50 mg Q6H PRN PO 06/13/16 17:45 06/27/16 17:44 Valsartan (Diovan Tab) 320 mg DAILY PO 06/14/16 09:00 07/14/16 08:59 06/15/16 08:01 320 MG Mirtazapine (Remeron Tab) 15 mg HS PO 06/13/16 21:00 07/13/16 20:59 06/14/16 20:00 15 MG Pantoprazole Sodium (Protonix Tab) 40 mg QAM PO 06/14/16 09:00 07/14/16 08:59 06/15/16 08:01 40 MG Tapentadol (Nucynta Er Tab) 100 mg Q12 PO 06/13/16 21:00 07/13/16 20:59 06/15/16 08:13 100 MG Atenolol (Tenormin Tab) 50 mg BID PO 06/13/16 21:00 07/13/16 20:59 06/15/16 08:35 50 MG Insulin Glargine (Lantus Solostar Pen) 10 unit BID SC 06/13/16 21:00 07/13/16 20:59 06/15/16 08:09 10 UNIT Insulin Aspart (novoLOG ASPART) SLIDING SCALE G... ACHS SC 06/13/16 21:00 07/13/16 20:59 06/15/16 08:09 3 UNITS Vancomycin HCl (Consult) 1 ea UD PRN N/A 06/13/16 20:00 06/21/16 19:59 Piperacillin Sod/ Tazobactam Sod (Consult) 1 ea UD PRN N/A 06/13/16 20:00 06/21/16 19:59 Oseltamivir Phosphate 75 mg 75 mg BID PO 06/14/16 09:00 06/18/16 21:01 06/15/16 08:01 75 MG Vancomycin HCl/ Sodium Chloride (Vancomycin Inj/ Nss 250ml) 270 ml @ 125 mls/hr Q12@06,18 IV 06/14/16 06:00 06/21/16 05:59 06/15/16 05:32 125 MLS/HR Prednisone (PredniSONE TAB) 10 mg DAILY PO 06/15/16 09:00 07/15/16 08:59 06/15/16 08:13 10 MG Review of Systems Constitutional: + fatigue ([employer]- now improved), + weakness, No fever Eyes: No worsening of vision ENT: No hearing loss Respiratory: + cough ([employer]- now improved), No shortness of breath, No sputum Cardiovascular: No chest pain Abdomen: + diarrhea (loose stool this morning), No nausea, No pain, No vomiting Musculoskeletal: + problem reported (right lower extremity amputation), No joint pain Genitourinary - Male: No dysuria, No hematuria Neurologic: + problem reported (fall [employer]) Integumentary: + problem reported (multiple large abrasions on the lower lumbar region from fall at home), No itch, No rash Physical Exam Date Time Temp Pulse Resp B/P Pulse Ox O2 Delivery O2 Flow Rate FiO2 06/15/16 08:00 Room Air 06/15/16 07:26 36.7 70 18 131/89 93 1.0 06/15/16 00:01 Nasal Cannula 2.0 06/14/16 23:27 36.4 67 18 119/76 97 Room Air 06/14/16 20:57 36.6 83 18 130/70 93 Nasal Cannula 2.0 06/14/16 20:32 36.7 71 19 96 2.0 06/14/16 20:14 96 Nasal Cannula 2.0 06/14/16 19:13 36.7 71 19 107/66 97 Nasal Cannula 2.0 06/14/16 16:16 96 Nasal Cannula 2.0 06/14/16 15:39 36.7 72 19 104/65 97 Nasal Cannula 2.0 06/14/16 12:01 96 Nasal Cannula 2.0 General Appearance: WD/WN, no apparent distress Head: normocephalic, atraumatic Eyes: normal inspection ENT: hearing grossly normal Neck: supple, trachea midline Respiratory/Chest: chest non-tender, no respiratory distress, no accessory muscle use, + pertinent finding (coarse breath sounds RLL) Cardiovascular: regular rate, rhythm, no murmur Abdomen/GI: normal bowel sounds, non tender, soft Back: + pertinent finding (large dressings on lower lumbar spine) Neurologic/Psych: alert, normal mood/affect Skin: warm/dry, no rash, + pertinent finding (large abrasions of the lumbar spine, no surrounding erythema or warmth. ) Laboratory Results CHEST ONE VIEW PORTABLE CLINICAL HISTORY: sepsis COMPARISON STUDY: No previous studies for comparison. FINDINGS: There is mild elevation of right hemidiaphragm. The heart is normal in size. No evidence for pulmonary edema. There are no focal pulmonary consolidation. There are minor left basilar atelectatic changes.[ IMPRESSION: No significant change compared to the prior study. Stable elevation of the right hemidiaphragm. Item Value Date Time Blood Culture Received 06/15/16 0630 Blood Pending Blood Culture Received 06/15/16 0630 Blood Pending Urine Culture - Final Complete 06/13/16 1720 Urine,Catheterized NO GROWTH - LESS THAN 1,000 COLONIES/ML Blood Culture - Preliminary Resulted 06/13/16 1633 Blood Gram Positive Cocci Blood Culture - Preliminary Resulted 06/13/16 1541 Blood NO GROWTH TO DATE. Last 24 Hours Test 06/14/16 11:18 06/14/16 16:29 06/14/16 20:01 06/15/16 06:30 Bedside Glucose 170 mg/dl 149 mg/dl 89 mg/dl Sodium Level 140 mmol/L Potassium Level 3.5 mmol/L Chloride Level 104 mmol/L Carbon Dioxide Level 31 mmol/L Anion Gap 5.0 mmol/L Blood Urea Nitrogen 8 mg/dl Creatinine 0.64 mg/dl Est Creatinine Clear Calc Drug Dose 140.5 ml/min Estimated GFR () 128.7 Estimated GFR (Non- 111.0 BUN/Creatinine Ratio 12.0 Random Glucose 110 mg/dl Calcium Level 8.1 mg/dl Magnesium Level 1.6 mg/dl Test 06/15/16 08:04 Bedside Glucose 145 mg/dl Assessment & Plan Patient with Influenza A and GPC in 1/2 blood cultures. He is currently on Vancomycin and Zosyn. Recommend D/C Zosyn and awaiting culture result to determine antibiotic therapy. This may be contamination, in which case the patient likely will not need continued IV antibiotic therapy. He sounds as though he could have a slight post-flu pneumonia of the RLL on exam though his CXR looks OK. May consider continuing Doxycycline to complete 7 days. We will follow. PROVIDER ADDENDUM: Patient examined and reviewed with Ms. Graves. Agree with above assessment.
[2016-06-15] MEDS ORDERED: DOXYCYCLINE HYCLATE 100 MG CAP PO ONE (12:00)
[2016-06-15 16:22] VITALS: BP 176/102; PULSE 73; TEMP 36.9; O2SAT 96
[2016-06-15] MEDS ORDERED: VANCOMYCIN TROUGH SCH (17:30)
[2016-06-15] MEDS ORDERED: HydrALAZINE HCL 20 MG/ML VIAL IV. PRN (17:45)
[2016-06-15] MEDS: ENOXAPARIN 40 MG/0.4 ML SYR SC SCH (22:09)
[2016-06-15] MEDS: AMITRIPTYLINE HCL 50 MG TAB PO SCH (22:09)
[2016-06-15] MEDS: MIRTAZAPINE TAB 15 MG TAB PO SCH (22:09)
[2016-06-15] MEDS: DOXYCYCLINE HYCLATE 100 MG CAP PO SCH (22:10)
--- NOTE | 2016-06-15 23:15 | Progress Note ---
Internal Med Progress Note Date of Service: Jun 15, 2016. Provider Documentation: SUBJECTIVE: feels fine no headache no cough or SOB no fever or chills OBJECTIVE: Vital Signs-as noted below Exam: General-no sign of distress Eyes-sclera non icteric ENT-nad Neck-no thyromegaly Lungs-CTA .no wheeze or rales Heart-regular S1/S2 Abdomen-soft, non tender Extremities-no lower ext edema Neuro-no focal deficit Lab data as noted below. ASSESSMENT & PLAN: SEVERE SEPSIS resolved due to Influenza A BP remains stable Lactic acid level normalized with fluid resuscitation INFLUENZA A started on Tamiflu complete 5 days course Droplet precaution GRAM POSITIVE BACTEREMIA : 1 bottle +ve for gram + ve cocci possible contamination repeat culture ordered on empiric Abx with Doxycycline appreciate ID eval ALTERED MENTAL STATUS resolved , mental status at baseline Probable metabolic encephalopathy secondary to sepsis/dehydration /flu ACUTE KIDNEY INJURY due to sepsis /dehydration resolved with IV hydration follow PRP resumed HCTZ on discharge HYPONATREMIA due to dehydration resolved with IV fluid Follow. HYPERTENSION was hypotensive due to sepsis. BP stable now resumed atenolol, felodipine, losartan. DM TYPE 2 Hold metformin and glyburide during acute illness. Lantus/NovoLog per protocol with initial glucose goal range of 140-180. PMR PMR on chronic prednisone therapy-prednisone 10 mg PO daily hold hydroxychloroquine- in light of sepsis. can be resumed in 7-10 days after completion of Abx VTE PROPHYLAXIS SQ enoxaparin. Ambulate RESUSCITATION STATUS Full resuscitation. DISPOSITION Discharge home tomorrow [facility] Medicine follow-up with Dr. Cherry. Vital Signs: Date Time Temp Pulse Resp B/P Pulse Ox O2 Delivery O2 Flow Rate FiO2 06/15/16 16:22 36.9 73 16 176/102 96 Room Air 06/15/16 16:00 Room Air 06/15/16 08:00 Room Air 06/15/16 07:26 36.7 70 18 131/89 93 1.0 06/15/16 00:01 Nasal Cannula 2.0 Lab Results: Results Past 24 Hours Test 06/15/16 06:30 06/15/16 08:04 06/15/16 11:31 06/15/16 16:17 Range/Units Sodium Level 140 136-145 mmol/L Potassium Level 3.5 3.5-5.1 mmol/L Chloride Level 104 98-107 mmol/L Carbon Dioxide Level 31 21-32 mmol/L Anion Gap 5.0 3-11 mmol/L Blood Urea Nitrogen 8 7-18 mg/dl Creatinine 0.64 0.60-1.40 mg/dl Est Creatinine Clear Calc Drug Dose 140.5 ml/min Estimated GFR () 128.7 Estimated GFR (Non- 111.0 BUN/Creatinine Ratio 12.0 10-20 Random Glucose 110 70-99 mg/dl Calcium Level 8.1 8.5-10.1 mg/dl Magnesium Level 1.6 1.8-2.4 mg/dl Bedside Glucose 145 201 155 70-99 mg/dl Microbiology Results 06/15/16 Blood Culture, Received Pending 06/15/16 Blood Culture, Received Pending
[2016-06-15] MEDS ORDERED: TMF75 PO (23:34)
[2016-06-15] MEDS ORDERED: DXY100 PO (23:34)
--- NOTE | 2016-06-15 23:35 | Discharge Instructions ---
Discharge Instructions Admission Reason for Admission: Sepsis Discharge Discharge Diagnosis / Problem: INFLUENZA A /SEPSIS Discharge Goals Goal(s): Increase independence, Improve disease control, Diagnostic testing, Therapeutic intervention Activity Recommendations Activity Limitations: resume your previous activity . Instructions / Follow-Up Instructions / Follow-Up HOSPITAL FOLLOW UP ON 06/23/2016 @1:[address] Spencer Cherry MD [facility] Current Hospital Diet Patient's current hospital diet: Regular Diet Discharge Diet Recommended Diet: AHA Diet (Heart Healthy) Pending Studies Studies pending at discharge: no Laboratory Results Hemoglobin A1c Test 06/14/16 05:21 Range/Units Estimated Average Glucose 143 mg/dl Hemoglobin A1c 6.6 H 4.5-5.6 % Medical Emergencies . Who to Call and When: Medical Emergencies: If at any time you feel your situation is an emergency, please call 911 immediately. . Non-Emergent Contact Non-Emergency issues call your: Primary Care Provider . . "Provider Documentation" section prepared by Faby Weinberg. VTE Core Measure Inpt VTE Proph given/why not?: Enoxaparin (Lovenox)SQ
[2016-06-15 23:38] VITALS: BP 149/79; PULSE 65; TEMP 37; O2SAT 99
[2016-06-16 06:43] VITALS: BP 151/79; PULSE 74; TEMP 37.1; O2SAT 98
[2016-06-16] MEDS: DOXYCYCLINE HYCLATE 100 MG CAP PO SCH (08:05)
[2016-06-16] MEDS: CITALOPRAM 20 MG TAB PO SCH (08:06)
[2016-06-16] MEDS: GABAPENTIN 600 MG TAB PO SCH (08:06)
[2016-06-16] MEDS: PANTOprazole SOD 40 MG TAB PO SCH (08:06)
[2016-06-16] MEDS: OSELTAMIVIR PHOSPHATE 75 MG CAP PO SCH (08:07)
[2016-06-16] MEDS: VALSARTAN 80 MG TAB PO SCH (08:07)
[2016-06-16] MEDS: INSULIN ASPART 100 UNITS/ML 3 ML PEN SC SCH ×2 (08:15→12:12)
[2016-06-16] MEDS: TAPENTADOL ER 50 MG TABCR PO SCH (08:16)
[2016-06-16] MEDS: INSULIN GLARGINE SOLOSTAR 100 UNITS/ML 3 ML PEN SC SCH (08:16)
[2016-06-16] MEDS ORDERED: FELODIPINE 5 MG TABCR PO SCH (09:00)
[2016-06-16] MEDS ORDERED: MAGNESIUM OXIDE 400 MG TAB PO SCH (09:00)
[2016-06-16] MEDS ORDERED: HYDROCHLOROTHIAZIDE 25 MG TAB PO SCH (09:00)
--- NOTE | 2016-06-16 10:24 | Infectious Disease Progress Nt ---
Progress Note Date of Service Jun 16, 2016. Subjective Blood cultures growing micrococcus in 1/2 cultures, likely contamination. Patient is feeling well this morning and anticipating D/C this afternoon. Patient is curious about home health to change the dressings on his back. Glucose this morning was 122. No other new labs or imaging. Repeat blood cultures pending. Vancomycin was D/C'd. All Other Systems: Reviewed and Negative Medications Current Inpatient Medications Medications (Trade) Dose Ordered Sig/Yaz Route Start Time Stop Time Status Last Admin Dose Admin Enoxaparin Sodium (Lovenox Inj) 40 mg HS SC 06/13/16 21:00 07/13/16 20:59 06/15/16 22:09 40 MG Acetaminophen (Tylenol Tab) 650 mg Q4H PRN PO 06/13/16 17:15 07/13/16 17:14 Ondansetron HCl (Zofran Inj) 4 mg Q6H PRN IV 06/13/16 17:15 07/13/16 17:14 Amitriptyline HCl (Elavil Tab) 100 mg HS PO 06/13/16 21:00 07/13/16 20:59 06/15/16 22:09 100 MG Citalopram Hydrobromide (celeXA TAB) 20 mg DAILY PO 06/14/16 09:00 07/14/16 08:59 06/16/16 08:06 20 MG Gabapentin (Neurontin Tab) 900 mg BID PO 06/13/16 21:00 07/13/16 20:59 06/16/16 08:06 900 MG Tapentadol (Nucynta Tab) 50 mg Q6H PRN PO 06/13/16 17:45 06/27/16 17:44 Valsartan (Diovan Tab) 320 mg DAILY PO 06/14/16 09:00 07/14/16 08:59 06/16/16 08:07 320 MG Mirtazapine (Remeron Tab) 15 mg HS PO 06/13/16 21:00 07/13/16 20:59 06/15/16 22:09 15 MG Pantoprazole Sodium (Protonix Tab) 40 mg QAM PO 06/14/16 09:00 07/14/16 08:59 06/16/16 08:06 40 MG Tapentadol (Nucynta Er Tab) 100 mg Q12 PO 06/13/16 21:00 07/13/16 20:59 06/16/16 08:16 100 MG Atenolol (Tenormin Tab) 50 mg BID PO 06/13/16 21:00 07/13/16 20:59 06/16/16 08:05 50 MG Insulin Glargine (Lantus Solostar Pen) 10 unit BID SC 06/13/16 21:00 07/13/16 20:59 06/16/16 08:16 10 UNIT Insulin Aspart (novoLOG ASPART) SLIDING SCALE G... ACHS SC 06/13/16 21:00 07/13/16 20:59 06/16/16 08:15 2 UNITS Oseltamivir Phosphate (Tamiflu Cap) 75 mg BID PO 06/14/16 09:00 06/18/16 21:01 06/16/16 08:07 75 MG Prednisone (PredniSONE TAB) 10 mg DAILY PO 06/15/16 09:00 07/15/16 08:59 06/16/16 08:06 10 MG Doxycycline Hyclate (Vibramycin Cap) 100 mg BID PO 06/15/16 21:00 06/22/16 20:59 06/16/16 08:05 100 MG Hydralazine HCl (HydrALAZINE INJ) 10 mg Q8 PRN IV. 06/15/16 17:45 07/15/16 17:44 06/15/16 17:56 10 MG Felodipine (Plendil Tabcr) 5 mg DAILY PO 06/16/16 09:00 07/16/16 08:59 06/16/16 09:46 5 MG Hydrochlorothiazide (Hydrochlorothiazide Tab) 25 mg DAILY PO 06/16/16 09:00 07/16/16 08:59 06/16/16 09:46 25 MG Magnesium Oxide (Mag-Ox Tab) 400 mg BID PO 06/16/16 09:00 07/16/16 08:59 06/16/16 09:46 400 MG Objective Vital Signs Date Time Temp Pulse Resp B/P Pulse Ox O2 Delivery O2 Flow Rate FiO2 06/16/16 08:00 Room Air 06/16/16 06:43 37.1 74 18 151/79 98 Room Air 06/16/16 00:00 Room Air 06/15/16 23:38 37.0 65 18 149/79 99 Room Air 06/15/16 16:22 36.9 73 16 176/102 96 Room Air 06/15/16 16:00 Room Air Physical Exam General Appearance: WD/WN, no apparent distress Eyes: normal inspection, sclerae normal ENT: hearing grossly normal Neck: supple, trachea midline Respiratory/Chest: chest non-tender, lungs clear, normal breath sounds, no respiratory distress, no accessory muscle use Cardiovascular: regular rate, rhythm Abdomen: normal bowel sounds, non tender, soft Extremities: + pertinent finding (right lower extremity amputation) Neurologic/Psychiatric: alert, normal mood/affect Skin: warm/dry, no rash, + pertinent finding (bandages on lumbar spine) Laboratory Results RUN DATE: 06/16/16 [facility] LAB PAGE 1 RUN TIME: 0754 Specimen Inquiry PATIENT: MARCO ANTONIO CONNORS [facility] # : [id number] AGE/SX: 55/M ROOM: [facility] REG : 06/13/[address]: Lexx Gentile MD : [id number] BED: 1 DIS : STATUS: ADM IN TLOC: SPEC #: [id number] SHELL: 06/13/16 STATUS: RES REQ #: [id number] RECD: 06/13/[address] [facility] [address]: Angel Walter M.D. SOURCE: BLOOD ENTR: 06/13/[address] [facility] [address]: Spencer Cherry M.D.([facility]) [facility]: ORDERED: BLOOD CULTURE Procedure Result Verified Site BLD CULT Preliminary 06/16/16-0753 Organism 1 MICROCOCCUS SPECIES SENS NO SENSITIVITY TO FOLLOW Phoned results to JOLIE LOPEZ on 06/15/16 at 0714 by Lawanda Cole. Results were verbalized back to KIM. * This is a corrected result. * A prior result that was reported as final has been changed. Item Value Date Time Blood Culture Received 06/15/16 0630 Blood Pending Blood Culture Received 06/15/16 0630 Blood Pending Urine Culture - Final Complete 06/13/16 1720 Urine,Catheterized NO GROWTH - LESS THAN 1,000 COLONIES/ML Blood Culture - Preliminary Resulted 06/13/16 1633 Blood Micrococcus Species Blood Culture - Preliminary Resulted 06/13/16 1541 Blood NO GROWTH TO DATE. Last 24 Hours Test 06/15/16 11:31 06/15/16 16:17 06/16/16 06:05 06/16/16 07:24 Bedside Glucose 201 mg/dl 155 mg/dl 122 mg/dl Magnesium Level 1.2 mg/dl Assessment and Plan Patient with Influenza A and GPC in 1/2 blood cultures. Blood cultures now growing micrococcus, which is likely contamination. Repeat cultures are pending. The patient's Vancomycin was discontinued and he is ready for D/C this afternoon. I agree with continued Doxycycline to finish 7 days for concerns of post-flu pneumonia. Otherwise, the patient is OK for D/C from ID perspective. He was asking about help with changing his wound bandages at home- consider home health or even wound care follow up? Thanks PROVIDER ADDENDUM: Patient reviewed with Ms. Graevs. Agree with above assessment.
[2016-06-16 13:22] VITALS: BP 151/79; PULSE 74; TEMP 37.1; O2SAT 98
--- NOTE | 2016-06-16 14:45 | Discharge Summary ---
Discharge Summary Date of Service Jun 16, 2016. Discharge Summary Admission Date: Jun 13, 2016 at 17:15 Discharge Date: Jun 16, 2016 Principal Diagnosis: INFLUENZA A /SEPSIS Consultations: ID DR THURSTON Medication Reconciliation New Medications: Doxycycline Hyclate (Doxycycline Hyclate) 100 Mg Cap 100 MG PO BID for 5 Days, #10 CAP Oseltamivir Phosphate (Tamiflu) 75 Mg Cap 75 MG PO BID for 3 Days, #6 CAP Continued Medications: Amitriptyline Hcl (Elavil) 50 Mg Tab 100 MG PO HS Atenolol (Tenormin) 100 Mg Tab 100 MG PO BID Atorvastatin (Lipitor) 40 Mg Tab 40 MG PO DAILY, TAB Citalopram (Citalopram Hydrobromide) 20 Mg Tab 20 MG PO DAILY, TAB Felodipine (Plendil) 5 Mg Tabcr 5 MG PO DAILY, 0 Refills Gabapentin (Neurontin) 300 Mg Cap 900 MG PO BID, CAP Glyburide (Diabeta) 2.5 Mg Tab 2.5 MG PO DAILY, TAB Hydrochlorothiazide (Hctz) 25 Mg Tab 25 MG PO DAILY, TAB Metformin Hcl (Glucophage) 500 Mg Tab 500 MG PO BID, TAB Mirtazapine Soltab (Remeron Soltab) 15 Mg Soltab 15 MG PO HS, TAB Omeprazole (Prilosec) 20 Mg Capcr 20 MG PO DAILY, 0 Refills Prednisone (Prednisone) 10 Mg Tab 10 MG PO DAILY, TAB Tapentadol Hcl (Nucynta) 50 Mg Tab 50 MG PO QID PRN, 0 Refills Tapentadol Hcl (Nucynta Er) 100 Mg Tab 1 TAB PO BID for 30 Days, #60 TAB Valsartan (Diovan) 320 Mg Tab 320 MG PO DAILY, TAB Discontinued Medications: Hydroxychloroquine Sulfate (Plaquenil) 200 Mg Tab 400 MG PO HS, TAB Admission Information HPI (per Admitting provider): 55-year-old male followed by Dr. Cherry. History of hypertension, diabetes mellitus type 2, PMR on steroids, and other problems noted below. 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 Since then, he has experienced phantom limb discomfort. 3 nights prior to admission he developed a cough that was nonproductive. No apparent fever. He felt tired and noticed increasing discomfort from his phantom limb symptoms. 2 days prior to admission he had persistent phantom limb discomfort, persistent cough, weakness, and confusion. Yesterday he was very tired and slept much of the day. Seen in clinic today because of his persistent cough, confusion, and phantom limb discomfort. Found to be acutely ill and referred to the ED for further management. In the ED, he is noted to be hypotensive, hypoxic, confused. He had a low-grade temperature. Sepsis protocol was initiated. As noted, patient has had a cough for the past few days that remains nonproductive. No sinus symptoms or pharyngitis. No toothaches. No nausea, vomiting, diarrhea, abdominal pain. No dysuria, hematuria, flank pain. No problems with his right lower extremity prosthesis (e.g., no drainage at amputation site, etc). . . Physical Exam (per Admitting): General Appearance: WD/WN, + moderate distress Head: normocephalic, atraumatic Eyes: normal inspection, PERRL, EOMI, sclerae normal, + pertinent finding ( conjunctivae pink) ENT: hearing grossly normal, pharynx normal, + pertinent finding (dentition poor) Neck: supple, no adenopathy, thyroid normal, no JVD, trachea midline Respiratory/Chest: + rhonchi (scattered), + wheezing (diffuse, moderate) Cardiovascular: regular rate, rhythm, no edema, no gallop, no JVD, no murmur , + pertinent finding (diminished pedal pulses L foot; capillary refill 1-2 sec) Abdomen/GI: normal bowel sounds, non tender, soft, no organomegaly, no pulsatile mass Extremities/Musculoskelatal: no calf tenderness, no pedal edema, + pertinent finding (amputation RLE at level of hip / pelvis) Neurologic/Psych: drafter commercial II-XII nml as tested (PERRL, EOMI, no facial palsy), no motor/sensory deficits (grossly intact), + disoriented (mild confusion) Skin: normal color, warm/dry, no rash, + pertinent finding (1 cm superfical ulcer right pelvis overlying amputation scar, no erythema or drainage) Lymphatic: no adenopathy Hospital Course Feels fine today , no fever or chills cough has resolved improvement of energy , normal appetite feels well enough to go home today P/E: Gen : no apparent distress HEENT: sclera non icteric HT : regular s1/s2 lungs; CTA abdomen ; soft, non tender Ext : no rash or deformity Neuro: no focal deficit SEVERE SEPSIS resolved due to Influenza A BP remains stable Lactic acid level normalized with fluid resuscitation INFLUENZA A started on Tamiflu complete 5 days course GRAM POSITIVE BACTEREMIA : 1 bottle +ve for gram + ve cocci possible contamination repeat blood culture -no growth has blister rash on buttock area on empiric Abx with Doxycycline appreciate ID eval ALTERED MENTAL STATUS resolved , mental status at baseline Probable metabolic encephalopathy secondary to sepsis/dehydration /flu ACUTE KIDNEY INJURY due to sepsis /dehydration resolved with IV hydration follow PRP resumed HCTZ on discharge HYPONATREMIA due to dehydration resolved with IV fluid HYPERTENSION was hypotensive due to sepsis. BP stable now resumed atenolol, felodipine, losartan. DM TYPE 2 Hold metformin and glyburide during acute illness. resumed on discharge Lantus/NovoLog per protocol with initial glucose goal range of 140-180. PMR PMR on chronic prednisone therapy-prednisone 10 mg PO daily hold hydroxychloroquine- in light of sepsis. can be resumed in 7-10 days after completion of Abx VTE PROPHYLAXIS SQ enoxaparin. Ambulate RESUSCITATION STATUS Full resuscitation. DISPOSITION Discharge home today Family Medicine follow-up with Dr. Cherry. Total time spent on discharge = 35 mins This includes examination of the patient, discharge planning, medication reconciliation, and communication with other providers. Discharge Instructions Discharge Instructions Admission Reason for Admission: Sepsis Discharge Discharge Diagnosis / Problem: INFLUENZA A /SEPSIS Discharge Goals Goal(s): Increase independence, Improve disease control, Diagnostic testing, Therapeutic intervention Activity Recommendations Activity Limitations: resume your previous activity . Instructions / Follow-Up Instructions / Follow-Up HOSPITAL FOLLOW UP ON 06/23/2016 @1:[address] Spencer Cherry MD Family Practice [facility] Current Hospital Diet Patient's current hospital diet: Regular Diet Discharge Diet Recommended Diet: AHA Diet (Heart Healthy) Pending Studies Studies pending at discharge: no Laboratory Results Hemoglobin A1c Test 06/14/16 05:21 Range/Units Estimated Average Glucose 143 mg/dl Hemoglobin A1c 6.6 H 4.5-5.6 % Medical Emergencies . Who to Call and When: Medical Emergencies: If at any time you feel your situation is an emergency, please call 911 immediately. . Non-Emergent Contact Non-Emergency issues call your: Primary Care Provider . . "Provider Documentation" section prepared by Faby Weinberg. VTE Core Measure Inpt VTE Proph given/why not?: Enoxaparin (Lovenox)SQ
[2016-11-12] MEDS ORDERED: TNR50 PO (09:44)
== END 2016-06-16 14:41 | disposition home health service (06) | DRG 871 ==
LOC: ENRESERVDT → ENRESERVTM → C.EDB 15:01 → UNDOADMIN 17:15 → C.2E 17:15 → EDBEDREQ 17:21 → C.2E 06-14 18:57 → C.MED 06-14 18:57
PROVIDERS: ADMIT Hospitalist; ATTEND Internal Medicine
DX: A41.9 Sepsis, unspecified organism (principal); J10.00 Influenza due to other identified influenza virus with unspecified type of pneumonia; G93.41 Metabolic encephalopathy; N17.9 Acute kidney failure, unspecified; E87.1 Hypo-osmolality and hyponatremia; R65.20 Severe sepsis without septic shock; T50.2X5A Adverse effect of carbonic-anhydrase inhibitors, benzothiadiazides and other diuretics, initial encounter; I10 Essential (primary) hypertension; E11.9 Type 2 diabetes mellitus without complications; M35.3 Polymyalgia rheumatica; G89.29 Other chronic pain; G54.6 Phantom limb syndrome with pain; S30.810A Abrasion of lower back and pelvis, initial encounter; W19.XXXA Unspecified fall, initial encounter; Y92.009 Unspecified place in unspecified non-institutional (private) residence as the place of occurrence of the external cause; F17.200 Nicotine dependence, unspecified, uncomplicated; Z89.611 Acquired absence of right leg above knee; Z79.52 Long term (current) use of systemic steroids; Z79.84 Long term (current) use of oral hypoglycemic drugs; Z79.891 Long term (current) use of opiate analgesic; Z79.899 Other long term (current) drug therapy; Z88.1 Allergy status to other antibiotic agents; Z88.2 Allergy status to sulfonamides; Z82.49 Family history of ischemic heart disease and other diseases of the circulatory system; Z83.3 Family history of diabetes mellitus; Z80.42 Family history of malignant neoplasm of prostate